=== PATIENT | female | born 1935 | race Caucasian/White ===

== ENCOUNTER → 2018-10-14 06:06 | Outpatient (CLI) | payer MEDICARE, OTHER, SELFPAY ==
--- NOTE | 2018-10-14 06:11 | ECHOD_ITS ---
Reason For Study: Abn.EKG Procedure This was a 2D Doppler, Color Flow transthoracic echocardiogram. The study was technically difficult. Exam performed in department. Left Ventricle Normal LV size. Left ventricular systolic function is normal. The estimated ejection fraction is 65 %. Diastolic function is indeterminate. No regional wall motion abnormalities noted. Right Ventricle Normal RV size. Normal systolic function. Atria Normal left atrium. Normal right atrium. No doppler evidence for ASD. Mitral Valve There is no mitral annular calcification. Normal mitral valve. Trivial mitral valve insufficiency. Tricuspid Valve Normal tricuspid valve. Trivial tricuspid valve insufficiency. Right ventricular systolic pressure estimated to be 26 mmHg. Aortic Valve Trisinus/trileaflet aortic valve. Moderate focal aortic valve calcification. Mild aortic stenosis. Pulmonic Valve The pulmonic valve is not well visualized. Great Vessels Normal sized aortic root. Pericardium/Pleural No pericardial effusion. MMode/2D Measurements & Calculations LVIDd: 4.0 cm IVSd: 1.2 cm LVOT diam: 2.0 cm LVIDs: 2.3 cm LVPWd: 0.91 cm LVOT area: 3.2 cm2 FS: 41.3 % Ao root diam: 3.7 cm LAV(MOD-bp): 47.3 ml LA A4 area: 14.4 cm2 LAV(MOD-bp) Indexed: 27.1 ml/m2 LAV(MOD-sp2): 53.4 ml LAV(MOD-sp4): 36.3 ml LA dimension(2D): 3.9 cm RA A4 area: 10.0 cm2 Doppler Measurements & Calculations MV E max alexander: 89.9 cm/sec Lat Peak E' Alexander: 7.0 cm/sec Med Peak E' Alexander: 4.7 cm/sec MV A max alexander: 161.4 cm/sec E/E' lat: 12.8 E/E' med: 19.0 MV E/A: 0.56 MV V2 max: 192.4 cm/sec MV P1/2t max alexander: 123.0 cm/sec Ao V2 max: 220.6 cm/sec MV max P.8 mmHg MV P1/2t: 47.8 msec Ao max P.5 mmHg MV V2 mean: 116.9 cm/sec MV dec slope: 753.1 cm/sec2 Ao V2 mean: 146.6 cm/sec MV mean P.2 mmHg MVA(P1/2t): 4.6 cm2 Ao mean P.7 mmHg MV V2 VTI: 31.6 cm Ao V2 VTI: 39.9 cm MVA(VTI): 2.5 cm2 BRADEN(I,D): 2.0 cm2 BRADEN(V,D): 1.8 cm2 LV V1 max: 123.3 cm/sec SV(LVOT): 79.1 ml PA V2 max: 97.2 cm/sec LV V1 max P.1 mmHg LV V1 mean P.3 mmHg LV V1 mean: 85.7 cm/sec LV V1 VTI: 24.4 cm TR max alexander: 241.6 cm/sec TR max P.4 mmHg Interpretation Summary The study was technically difficult. Left ventricular systolic function is normal. The estimated ejection fraction is 65 %. Trivial mitral valve insufficiency. Trivial tricuspid valve insufficiency. Mild aortic stenosis. Right ventricular systolic pressure estimated to be 26 mmHg. Diastolic function is indeterminate. Ordering Physician: Alice Dave Referring Physician: Alice Dave Performed By: Rubina Young RDCS
--- NOTE | 2018-10-14 10:05 | STRESSREP ---
Stress Test Report Date: 10-14-2018 Procedure: Pharmacologic stress nuclear imaging study Indications: Aortic valve disorder; preoperative cardiovascular evaluation Consent: Per the patient Procedure: The patient underwent pharmacologic (Regadenoson) evaluation with a peak heart rate of 112 beats per minute (81 predicted maximal heart rate) and a peak blood pressure of 130/80 mmHg. The baseline ECG demonstrated Normal sinus rhythm . The peak pharmacologic ECG demonstrated no obvious ECG changes . There was an isolated PVC during infusion . There was no complaint of chest discomfort during pharmacologic infusion or recovery. The examination was discontinued secondary to completion of protocol. Impression: 1. Pharmacologic (Regadenoson) evaluation 2. Peak pharmacologic ECG with no obvious ECG changes . 3. There was an isolated PVC during infusion . 4. Nuclear images pending Myocardial perfusion imaging study: Technique: The patient was injected with 11.5 millicuries of technetium 99m Cardiolite and subsequently rest SPECT Cardiolite nuclear imaging was obtained in the horizontal long, vertical long, and short axis views. The patient underwent pharmacologic (Regadenoson) evaluation with a peak heart rate of 112 beats per minute (81 % percent predicted maximal heart rate) and a peak blood pressure of 130/80 mmHg. The patient was injected with 34.2 millicuries of technetium 99m Cardiolite and subsequently stress SPECT Cardiolite nuclear imaging was obtained in the horizontal long, vertical long, and short axis views. A gated Cardiolite study at peak stress was obtained. Interpretation: Rest and stress SPECT Cardiolite nuclear imaging status post realignment, normalization, and attenuation correction demonstrate small area diminished tracer uptake near the apical segments without significant change between rest and stress. There is end systolic thickening and brightening. The gated Cardiolite study demonstrates myocardial thickening and inward wall motion. The reported LVEF is 82 %. Impression: 1. Rest and stress SPECT Cardiolite nuclear imaging demonstrates a small area of diminished tracer uptake near the apical segments without significant change between rest and stress appearing compatible with physiologic apical thinning with no myocardial perfusion changes considered diagnostic for associated stress induced myocardial ischemia. 2. The gated Cardiolite study reports an LVEF of 82 %. This note was generated with [employer] software. It may contain incorrect words, spelling, and punctuation that were not noted in checking the note before signing.
--- NOTE | 2018-10-14 10:09 | STRESSREP_ITS ---
Stress Test Report Date: 10-14-2018 Procedure: Pharmacologic stress nuclear imaging study Indications: Aortic valve disorder; preoperative cardiovascular evaluation Consent: Per the patient Procedure: The patient underwent pharmacologic (Regadenoson) evaluation with a peak heart rate of 112 beats per minute (81 predicted maximal heart rate) and a peak bl ood pressure of 130/80 mmHg. The baseline ECG demonstrated Normal sinus rhythm . The peak pharmacologic ECG demonstrated no obvious ECG changes . There was an isolated PVC during infusion . There was no complaint of chest discomfort during pharmacologic infusion or recovery. The examination was discontinued secondary to completion of protocol. Impression: 1. Pharmacologic (Regadenoson) evaluation 2. Peak pharmacologic ECG with no obvious ECG changes . 3. There was an isolated PVC during infusion . 4. Nuclear images pending Myocardial perfusion imaging study: Technique: The patient was injected with 11.5 millicuries of technetium 99m Cardiolite and subsequently rest SPECT Cardiolite nuclear imaging was obtained in the horizontal long, vertical long, and short axis views. The patient underwent pharmacologic (Regadenoson) evaluation with a peak heart rate of 112 beats per minute (81 % percent predicted maximal heart rate) and a peak blood pressure of 130/80 mmHg. The patient was injected with 34.2 millicuries of technetium 99m Cardiolite and subsequently stress SPECT Cardiolite nuclear imaging was obtained in the horizontal long, vertical long, and short axis views. A gated Cardiolite study at peak stress was obtained. Interpretation: Rest and stress SPECT Cardiolite nuclear imaging status post realignment, normalization, and attenuation correction demonstrate small area diminished tracer uptake near the apical segments without significant change between rest and stress. There is end systolic thickening and brightening. The gated Cardiolite study demonstrates myocardial thickening and inward wall motion. The reported LVEF is 82 %. Impression: 1. Rest and stress SPECT Cardiolite nuclear imaging demonstrates a small area of diminished tracer uptake near the apical segments without significant change between rest and stress appearing compatible with physiologic apical thinning with no myocardial perfusion changes considered diagnostic for associated stress induced myocardial ischemia. 2. The gated Cardiolite study reports an LVEF of 82 %. This note was generated with [employer] software. It may contain incorrect words, spelling, and punctuation that were not noted in checking the note before signing.
== END ==
PROVIDERS: Family Provider Internal Medicine; PCP Internal Medicine; Referring Provider Internal Medicine; Visit Provider Internal Medicine
DX: R94.31 Abnormal electrocardiogram [ECG] [EKG] (principal); I35.0 Nonrheumatic aortic (valve) stenosis; Z01.818 Encounter for other preprocedural examination
CPT/HCPCS: 78452; 93017; 93306; A9500; A4216; J2785

== ENCOUNTER → 2018-11-18 07:36 | Outpatient (CLI) | payer MEDICARE, OTHER, SELFPAY ==
[2018-11-18 10:07] LABS: Cholesterol 183 mg/dL (200); Hemoglobin A1c 8.2 % (4.2-6.3); High Density Lipoprotein 25 mg/dL; Triglycerides 662 mg/dL
== END ==
PROVIDERS: Family Provider Internal Medicine; PCP Internal Medicine; Referring Provider Internal Medicine; Visit Provider Internal Medicine
DX: E11.9 Type 2 diabetes mellitus without complications (principal); E78.5 Hyperlipidemia, unspecified; H01.003 Unspecified blepharitis right eye, unspecified eyelid
CPT/HCPCS: 36415; 80061; 83036

== ENCOUNTER → 2019-03-03 05:00 | Outpatient (REF) | payer MEDICARE, OTHER, SELFPAY ==
[2019-03-03 09:01] LABS: Hemoglobin A1c 8.8 % (4.2-6.3)
[2019-03-03 09:05] LABS: ALB/GLOB Ratio 0.8 RATIO (0.9-2.4); AST(SGOT) 28 U/L (15-37); Alanine Aminotransfer ALT/SGPT 29 U/L (13-56); Albumin, Serum 3.1 g/dL (3.2-5.0); Alkaline Phosphatase 69 U/L (45-117); Anion Gap 9 (5-15); BUN 18 mg/dL (7-18); BUN/Creat Ratio 24.5 RATIO (10-20); Calcium,Total 8.8 mg/dL (8.5-10.1); Chloride 106 mmol/L (98-107); Cholesterol 167 mg/dL (200); Creatinine, Serum 0.73 mg/dL (0.55-1.02); EST Glomerular Filtration Rate 81 mL/min (>60); Est Glom Filt Rate - Afr Amer 97 mL/min (>60); Globulin 3.7 g/dL (2.2-4.2); Glucose 169 mg/dL (74-106); High Density Lipoprotein 27 mg/dL; Potassium 4.3 mmol/L (3.5-5.1); Protein, Total 6.8 g/dL (6.4-8.2); Sodium Level 140 mmol/L (136-145); Thyroid Stim Hormone (TSH) 1.93 uIU/mL (0.358-3.74); Triglycerides 549 mg/dL
[2019-03-03 12:27] LABS: Microalbumin,Random Urine 37.3 mg/L (NO RANGE EST.)
== END ==
LOC: OLS.DANBUR 05:00
DX: I10 Essential (primary) hypertension (principal); E11.9 Type 2 diabetes mellitus without complications; E55.9 Vitamin D deficiency, unspecified; E78.5 Hyperlipidemia, unspecified; G91.9 Hydrocephalus, unspecified
CPT/HCPCS: 36415; 80053; 80061; 82043; 83036; 84443

== ENCOUNTER → 2019-04-08 13:41 | Outpatient (CLI) | payer MEDICARE, OTHER, SELFPAY ==
[2019-04-08 15:15] LABS: Lactic Acid 2.9 mmol/L (0.4-2.0)
== END ==
PROVIDERS: Family Provider Internal Medicine; PCP Internal Medicine; Referring Provider Internal Medicine; Visit Provider Internal Medicine
DX: E11.9 Type 2 diabetes mellitus without complications (principal)
CPT/HCPCS: 36415; 83605

== ENCOUNTER → 2019-04-15 10:43 | Outpatient (CLI) | payer MEDICARE, OTHER, SELFPAY ==
[2019-04-15 11:29] LABS: Lactic Acid 2.5 mmol/L (0.4-2.0)
== END ==
PROVIDERS: Family Provider Internal Medicine; PCP Internal Medicine; Referring Provider Internal Medicine; Visit Provider Internal Medicine
DX: E11.9 Type 2 diabetes mellitus without complications (principal)
CPT/HCPCS: 36415; 83605

== ENCOUNTER → 2019-04-26 11:42 | Outpatient (CLI) | payer MEDICARE, OTHER, SELFPAY ==
[2019-04-26 12:52] LABS: Lactic Acid 3.4 mmol/L (0.4-2.0)
== END ==
PROVIDERS: Family Provider Internal Medicine; PCP Internal Medicine; Referring Provider Internal Medicine; Visit Provider Internal Medicine
DX: R79.89 Other specified abnormal findings of blood chemistry (principal); E11.9 Type 2 diabetes mellitus without complications
CPT/HCPCS: 36415; 83605

== ENCOUNTER → 2019-05-05 10:49 | Outpatient (CLI) | payer MEDICARE, OTHER, SELFPAY ==
[2019-05-05 11:35] LABS: Absolute Neutrophil Count 5.8 X10^3/uL (2.0-7.7); Basophil# 0.07 X10^3/uL; Basophil% 0.8 % (0-1); Eosinophil# 0.38 X10^3/uL; Eosinophils% 4.1 % (0-5); Hematocrit 39.5 % (37-47); Hemoglobin 13.4 g/dL (12.0-15.0); Lymphocyte % 27.2 % (19-41); Mean Corp Hgb Conc 33.9 g/dL (32-36); Mean Corpuscular Hgb 31.2 pg (27.0-32.0); Mean Corpuscular Volume 92.1 fL (81-99); Mean Platelet Vol. 9.9 fl (6.2-12.0); Monocyte# 0.38 X10^3/uL; Monocyte% 4.1 % (0-10); NRBC Flagged by Analyzer 0 % (0-5); Neutrophil # 5.82 X10^3/uL (2.7-7.7); Neutrophil % 63.5 % (47-70); Platelet Count 273 K/mm3 (150-450); RBC Distribution Width CV 13.6 % (11.6-14.6); RBC Distribution Width SD 46.1 fl (35.1-43.9); Red Blood Count 4.29 M/mm3 (4.2-5.4); White Blood Count 9.2 K/mm3 (4.4-11.0)
[2019-05-05 11:43] LABS: Lactic Acid 3.8 mmol/L (0.4-2.0)
[2019-05-05 11:59] LABS: ALB/GLOB Ratio 0.8 RATIO (0.9-2.4); AST(SGOT) 39 U/L (15-37); Alanine Aminotransfer ALT/SGPT 33 U/L (13-56); Albumin, Serum 3.2 g/dL (3.2-5.0); Alkaline Phosphatase 81 U/L (45-117); Anion Gap 7 (5-15); BUN 21 mg/dL (7-18); BUN/Creat Ratio 20.6 RATIO (10-20); Calcium,Total 9.1 mg/dL (8.5-10.1); Chloride 104 mmol/L (98-107); Creatinine, Serum 1.02 mg/dL (0.55-1.02); EST Glomerular Filtration Rate 55 mL/min (>60); Est Glom Filt Rate - Afr Amer 67 mL/min (>60); Globulin 4.1 g/dL (2.2-4.2); Glucose 269 mg/dL (74-106); Potassium 4.2 mmol/L (3.5-5.1); Protein, Total 7.3 g/dL (6.4-8.2); Sodium Level 137 mmol/L (136-145)
== END ==
PROVIDERS: Family Provider Internal Medicine; PCP Internal Medicine; Referring Provider Internal Medicine; Visit Provider Internal Medicine
DX: E11.9 Type 2 diabetes mellitus without complications (principal)
CPT/HCPCS: 36415; 80053; 83605; 85025

== ENCOUNTER 2019-05-28 18:24 | Emergency (ER) | payer MEDICARE, OTHER, SELFPAY ==
[2019-05-28 18:25] VITALS: BP 173/79; PULSE 98; RESP 16; TEMP 37.1; O2SAT 97; BMI 33.5
--- NOTE | 2019-05-28 18:30 | CT_ITS ---
STUDY: CT BRAIN WITHOUT CONTRAST REASON FOR EXAM: Female, 83 years old. Fall. Headache. Hydrocephalus with shunt. RADIATION DOSAGE (If Supplied By Facility): CTDIvol = ( 44.99 ) mGy, DLP = ( 846.73 ) mGycm TECHNIQUE: Transaxial CT imaging of the brain was performed without administration of intravenous contrast material. Individualized dose optimization techniques were used for this CT. COMPARISON: None. FINDINGS: There are calcifications noted in the rhonda. There is no acute bleed or infarct. There are mild chronic ischemic and atrophic changes. There is a right posterior approach [employer] shunt catheter noted with its tip in the right lateral ventricle. There is mild hydrocephalus. The visualized paranasal sinuses are clear. The mastoid air cells are well aerated. There is no skull fracture. CT/Brain/Head without Contrast IMPRESSION: No acute bleed or infarct. Mild chronic ischemic changes. [employer]GER shunt in place with mild hydrocephalus. Electronically Signed: Conner Vidal, at 19:10 EDT Tel , Service support ,
--- NOTE | 2019-05-28 18:32 | ED.DCSUM_ITS ---
History of Present Illness Chief Complaint: Head Injury Informant: Patient Onset: Today, Hours Mechanism/Context: Fall, Trip Quality of Pain: Dull, Aching, Throbbing Location: Global headache Current Severity: Severe Maximum Severity: Severe Worsened by: Nothing Relieved by: Nothing Associated Symptoms: Loss of consciousness. Negative for: Parasthesias, Weakness, Loss of function, Inability to ambulate, Amnesia Length of loss of consciousness: Transient Narrative: Patient is an elderly woman who tripped/lost her balance striking her head on the floor. She states she had loss of conscious. She complains of severe headache and nausea. She is on no anticoagulant or antiplatelet medicine. She denies trouble with her vision. She does report occulta hearing even she has her hearing aids in. She denies neck pain. Denies paresthesia, anesthesia buttocks. She denies cardiac rest Tory symptoms. Only GI symptom is nausea. Prior similar symptoms: No Recent Illness/Hospitalization: No Past Medical History - Allergies and Home Meds Allergies/Adverse Reactions: Allergies acetaminophen Allergy (Verified 05/28/19 18:37) Unknown hydrocodone Allergy (Verified 05/28/19 18:37) Unknown Primary Care Physician: Alice Dave [Primary Care Provider] - Prior records reviewed: Yes Surgical History: noncontributory Lives: Jail Smoking Status: Unknown if ever smoked Alcohol: None Drugs: None Review of Systems General: Denies: Chills, Fever, Sweats Eyes: Denies: Visual changes - bilaterally, Blurred Vision - bilaterally, Diplopia ENT: Denies: Bilateral ear pain, Rhinorrhea, Sore throat Cardiovascular: Denies: Chest pain, Palpitations Respiratory: Denies: Dyspnea, Cough, Dyspnea on exertion Gastrointestinal: Reports: Nausea. Denies: Abdominal pain, Vomiting, Diarrhea, Melena, Hematochezia Genitourinary: Denies: Dysuria, Hematuria, Frequency Musculoskeletal: Denies: Myalgias, Arthralgias, Neck pain, Back pain, Swelling, Extremity Pain, -, - Skin: Denies: Rash, Wounds Neurological: Reports: Headache. Denies: Weakness, Parasthesia, Numbness Endocrine: Denies: Polyuria, Polydipsia Hematologic: Denies: Easy bruising, Easy bleeding Physical Exam Vital Signs/Narrative: Vital Signs Temp Pulse Resp BP Pulse Ox 05/28/19 18:25 98.8 F 98 16 173/79 H 97 Inital Vital Signs reviewed: Yes General: Well nourished, Well developed Head: Normocephalic, Atraumatic, - - Pain to palpation over the occiput and over shunt site. Eyes: Perrl, EOMI. Negative for: Pale conjunctiva, Scleral icterus ENT: TM's clear, No hemotympanum or drainage, No trauma. Negative for: Hemotympanum, Otorrhea, Nasal trauma, Nasal septal hematoma Neck: Nontender, Full ROM. Negative for: Spinal Tenderness, Paraspinal Tenderness Cardiovascular: Regular rate, Regular rhythm, No murmurs, Normal S1, Normal S2 Respiratory: No distress, CTA bilaterally, Chest nontender Abdomen: Soft, Nontender, Nondistended, Normal bowel sounds Back: Nontender. Negative for: CVA Tenderness - Right, CVA Tenderness - Left, Spinal Tenderness Skin: Normal color, No rash. Negative for: Cyanosis, Diaphoresis, Jaundice Neurological: Alert, Oriented x3, Cranial nerves II-XII grossly intact, Normal Strength, Normal Sensation, Normal DTR - There is no clonus or Babinski sign Psychological: Normal affect - Glascow Coma Scale Eye Opening: Spontaneous Motor: Obeys Commands Verbal: Oriented Coma Scale Total: 15 Diagnostic/Tx/Re-eval Impressions Brain CT 05/28/19 18:30 IMPRESSION: No acute bleed or infarct. Mild chronic ischemic changes. [employer]IC[employer] shunt in place with mild hydrocephalus. Electronically Signed: Conner Vidal at 19:10 EDT Tel , Service support , Shuntogram 05/28/19 20:00 IMPRESSION: Patient may have ventriculo-atrial shunt. The visualized catheter appears to be intact. Electronically Signed: Pushpa Carpio MD at 20:36 EDT , Service support , 05/28/19 18:30 Brain/Head without Contrast [CT] Stat 05/28/19 20:00 Shuntogram/Prec Placed Shunt [RAD] Stat CT was reviewed by me and agree there is no acute findings. Shunt series reveals no disruption of the catheter. Patient was medicated with morphine for her head pain. - Medical Decision Making Since patient is elderly i.e. greater than 6 5 years of age with loss of conscious severe headache and nausea per the [place] CT head rule radiologic imaging is needed/indicated. CT of the head was obtained. She was made n.p.o. Need to evaluate for intracranial traumatic bleed versus concussion. ED Disposition - Plan for ED Patient: Disposition: Home or Assisted Living Diagnosis: Concussion with loss of consciousness Instructions: CONCUSSION, No Wake Up Referrals: Alice Dave [Primary Care Provider] - As Needed
[2019-05-28] MEDS: Ondansetron ODT 4 MG Tablet PO (19:36)
[2019-05-28] MEDS: Morphine 4 MG/ML Syringe IM (19:46)
--- NOTE | 2019-05-28 20:00 | RAD_ITS ---
STUDY: X-RAY VENTRICULOPERITONEAL SHUNT CATHETER EVALUATION REASON FOR EXAM: Female, 83 years old. Check shunt placement. TECHNIQUE: Single AP portable view of the chest. One view of the pelvis was obtained. AP radiograph of the abdomen is obtained. 1 views of the cervical spine were obtained. 1 views of the skull were obtained. COMPARISON: Prior comparison studies are not available for review at this time. FINDINGS: CHEST: The lungs are expanded. There is perihilar interstitial thickening present in both lungs. There is no demonstrated pleural abnormality. There is borderline cardiomegaly. Normal mediastinum and he. Normal visualized pulmonary arteries. There is atherosclerotic calcification of the aortic arch with tortuosity. There are diffuse degenerative changes of the visualized thoracic spine. Normal visualized ribs, clavicles, and shoulders. There is no demonstrated abnormality of the visualized soft tissue structures of the upper abdomen. ABDOMEN: Normal visualized lung bases. There is an unremarkable bowel gas pattern. Surgical clips are visible in the right upper quadrant. There is no obvious organomegaly, mass or dilated bowel. There are pelvic calcifications probably representing phleboliths. There are diffuse degenerative changes of the visualized lumbar spine. The bones appear osteopenic. PELVIS: There is a non-specific bowel gas pattern. Normal visualized soft tissue structures. Normal bilateral iliac wings, sacroiliac joints and visualized sacrum. Normal visualized bilateral superior pubic rami. Normal visualized right femoral head. Normal right acetabulum. Normal right hip joint. Normal visualized left femoral head. Normal left acetabulum. Normal left hip joint. SKULL: Ventriculostomy drain is visible and apparently within the right parietal cranium. The catheter is visible in the soft tissues of the right neck and chest. The catheter may actually enter the superior vena cava. The catheter is NOT visible within the abdomen or pelvis. There is demineralization of the calvarium. There is demineralization of the facial bones. Normal visualized paranasal sinuses. RAD/Shuntogram/Prec Placed Shunt IMPRESSION: Patient may have ventriculo-atrial shunt. The visualized catheter appears to be intact. Electronically Signed: Pushpa Carpio MD at 20:36 EDT , Service support ,
[2019-05-28 21:09] VITALS: BP 161/68; PULSE 97; RESP 16; O2SAT 97
[2019-05-28] MEDS: Ibuprofen 200 MG Tablet 400 MG PO (21:31)
--- NOTE | 2019-05-28 21:39 | ED.RN ---
ABEL CHANDLER AT [facility] CALLED WITH REPORT.
== END 2019-05-28 22:25 | disposition home or self-care (01) ==
PROVIDERS: Emergency Provider Emergency Medicine; Family Provider Internal Medicine; PCP Internal Medicine
DX: S06.0X9A Concussion with loss of consciousness of unspecified duration, initial encounter (principal); W01.0XXA Fall on same level from slipping, tripping and stumbling without subsequent striking against object, initial encounter; Y93.9 Activity, unspecified; Z98.2 Presence of cerebrospinal fluid drainage device
CPT/HCPCS: 70450; 75809; 96372; 99283; A4216

== ENCOUNTER → 2019-06-04 07:09 | Outpatient (CLI) | payer MEDICARE, OTHER, SELFPAY ==
[2019-05-28 18:25] VITALS: BMI 33.5
[2019-06-04 08:10] LABS: Cholesterol 169 mg/dL (200); High Density Lipoprotein 28 mg/dL; Triglycerides 500 mg/dL; Uric Acid 4.8 mg/dL (2.6-6.0)
[2019-06-04 08:38] LABS: Hemoglobin A1c 8.7 % (4.2-6.3)
[2019-06-04 08:44] LABS: Lactic Acid 2.2 mmol/L (0.4-2.0)
== END ==
PROVIDERS: Family Provider Internal Medicine; PCP Internal Medicine; Referring Provider Internal Medicine; Visit Provider Internal Medicine
DX: E11.9 Type 2 diabetes mellitus without complications (principal); E78.5 Hyperlipidemia, unspecified; E78.1 Pure hyperglyceridemia; H61.23 Impacted cerumen, bilateral; M10.9 Gout, unspecified; G91.2 (Idiopathic) normal pressure hydrocephalus; R00.0 Tachycardia, unspecified; R79.89 Other specified abnormal findings of blood chemistry
CPT/HCPCS: 36415; 80061; 83036; 83605; 84550

== ENCOUNTER 2019-07-19 01:40 | Emergency (ER) | payer MEDICARE, OTHER, SELFPAY ==
[2019-07-19 01:41] VITALS: BP 174/67; PULSE 90; RESP 14; TEMP 36.4; O2SAT 96; BMI 35.6
--- NOTE | 2019-07-19 01:47 | CT_ITS ---
STUDY: CT BRAIN WITHOUT CONTRAST REASON FOR EXAM: Female, 84 years old. Fell last week, hit head, nausea today. History of hydrocephalus and shunt RADIATION DOSAGE (If Supplied By Facility): CTDIvol = ( 44.99 ) mGy, DLP = ( 846.73 ) mGycm TECHNIQUE: Transaxial CT imaging of the brain was performed without administration of intravenous contrast material. Individualized dose optimization techniques were used for this CT. COMPARISON: CT brain noncontrast 05/28/2019 FINDINGS: Normal soft tissue structures. There is hyperostosis frontalis internus. Remote eliot hole access bilateral frontal calvarium. Right ventriculostomy the air right occipital horn access, catheter tip at the interventricular septum. Mild hydrocephalus. There are areas of decreased attenuation within the white matter tracts of the supratentorial brain, consistent with microvascular disease changes. Normal basal ganglia and thalami. Stable rhonda calcifications. Normal cerebellum. There is no intracranial hemorrhage. There are no findings of an acute ischemic infarction. Chronic stable left sphenoid inflammation. 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 The bilateral mastoid air cells and ossicles are unopacified. CT/Brain/Head without Contrast IMPRESSION: Chronic involutional changes of the brain. Stable hydrocephalus, rhodna calcification and postsurgical changes. There is no acute intracranial pathology. There is no significant interval change. Electronically Signed: Krystin Woodward MD at 2:50 EST , Service support ,
--- NOTE | 2019-07-19 01:47 | RAD_ITS ---
STUDY: X-RAY - PELVIS AND LEFT HIP REASON FOR EXAM: Female, 84 years old. Follow-up 11+ days ago, left hip pain TECHNIQUE: 3 views of the pelvis and hip. COMPARISON: None. FINDINGS: There are degenerative changes of the visualized lumbar spine. Normal visualized soft tissue structures. There is narrowing with cortical sclerosis and osteophyte formation of the sacroiliac joint consistent with degenerative osteoarthritic changes. Normal bilateral superior and inferior pubic rami. There are degenerative changes of the pubic symphysis with articular narrowing and sclerosis. Normal bilateral ischial tuberosities. Normal visualized femoral head. Normal acetabulum. There is moderate articular joint space narrowing of the hip. Bilateral perinephritic soft tissue calcification. There is minimal irregularity along the greater trochanter on the AP view pelvis which is mildly degraded by motion without adjacent soft tissue swelling, this is not visualized on the selective views and likely an artifact. RAD/HIP, UNI W/ Pelvis 2-3 Views IMPRESSION: There is no acute displaced fracture or dislocation. Degenerative changes Changes involving the greater trochanter of the left hip as outlined above likely an artifact. Electronically Signed: Krystin Woodward MD at 2:17 EST , Service support ,
--- NOTE | 2019-07-19 01:47 | CT_ITS ---
STUDY: CT LUMBAR SPINE WITHOUT CONTRAST REASON FOR EXAM: Female, 84 years old. Fell last week, back and hip pain RADIATION DOSAGE (If Supplied By Facility): CTDIvol = ( 32.97 ) mGy, DLP = ( 784.67 ) mGycm TECHNIQUE: The patient was scanned in a multi detector CT scanner. High resolution transaxial imaging was performed. Images were obtained from L1 to sacral. Sagittal and coronal images were reconstructed. Individualized dose optimization techniques were used for this CT. COMPARISON: None FINDINGS: Normal lumbar lordosis. There is a gentle dextroscoliosis of the upper lumbar spine. Generalized osteoporosis. Normal vertebrae of the lumbar spine. L1-3, L4-5: There is sclerosis of the endplate, loss of the disk height, nitrogen gas formation, posterior spurring/disc bulging indenting the anterior thecal sac with posterior fact indentation, arthropathy of the bilateral apophyseal joints and ligamentous hypertrophy. There is normal osseous spinal canal. There is left greater than right narrowing of the neuroforamina. L3-4: There is sclerosis of the endplate, loss of the disk height, nitrogen gas formation, posterior spurring /disc bulging indenting the anterior thecal sac with posterior fact indentation, arthropathy of the bilateral apophyseal joints and ligamentous hypertrophy. There is normal osseous spinal canal. There is right greater than left narrowing of the neuroforamina. L5-S1: There is sclerosis of the endplate, loss of the disk height, posterior disc osteophyte complex, arthropathy of the bilateral apophyseal joints and ligamentous hypertrophy. There is normal spinal canal. There is mild narrowing of the neuroforamina. The degenerative sclerosis of the abdominal aorta, nonobstructing right renal calculi, left kidney appears smaller compared to the right side. This however is incompletely imaged. Degenerative changes of the bilateral sacroiliac joints. CT/Spine Lumbar without Contrast IMPRESSION: Multilevel degenerative changes, as described above. Osteoporosis. Atherosclerosis. Nonobstructing right renal calculi, asymmetry in renal sizes, incompletely imaged possible involution on the left side. There is no acute displaced fracture or dislocation. Electronically Signed: Krystin Woodward MD at 3:46 EST , Service support ,
--- NOTE | 2019-07-19 01:50 | ED.VIS.GEN ---
History of Present Illness Chief Complaint: Lower Extremity Injury Informant: Patient Onset: Days Context: Gradual Onset Timing: Intermittent Current Severity: Moderate Maximum Severity: Moderate Narrative: The patient is an 84-year-old female who walks with a walker with history of hydrocephalus status post shunt placement presents to the emergency department with left hip pain. Patient states that about a week ago, she had a fall when she was ambulating. She landed on her left side. She struck her back and then struck her head. Since then, she has had some pain in her left hip but it worsened tonight. She states it hurts to ambulate. She describes a burning pain down her leg. She has had no problems with bowel or bladder. She does have vertigo and feels like this is acting up. She is now been nauseated. She said no vomiting. She has not taken anything for her pain. Prior similar symptoms: No Recent Illness/Hospitalization: No Past Medical History - Allergies and Home Meds Allergies/Adverse Reactions: Allergies acetaminophen Allergy (Verified 05/28/19 18:37) Unknown hydrocodone Allergy (Verified 05/28/19 18:37) Unknown Primary Care Physician: Alice Dave [Primary Care Provider] - Prior records reviewed: Yes Past Medical History: - - Aortic stenosis, ADVERTISING ACCOUNT REPRESENTATIVE shunt Surgical History: noncontributory Smoking Status: Unknown if ever smoked Review of Systems General: Denies: Chills, Fever, Sweats Eyes: Denies: Visual changes - bilaterally, Diplopia ENT: Denies: Rhinorrhea, Sore throat Cardiovascular: Denies: Chest pain, Palpitations Respiratory: Denies: Dyspnea, Cough, Dyspnea on exertion Gastrointestinal: Denies: Abdominal pain, Nausea, Vomiting, Diarrhea, Melena, Hematochezia Genitourinary: Denies: Dysuria, Hematuria, Frequency Musculoskeletal: Reports: Myalgias, Arthralgias. Denies: Back pain, Extremity Pain Skin: Denies: Rash, Wounds Neurological: Denies: Headache, Weakness, Numbness Physical Exam Vital Signs/Narrative: Vital Signs Temp Pulse Resp BP Pulse Ox 07/19/19 01:41 97.5 F L 90 14 174/67 H 96 Inital Vital Signs reviewed: Yes General: Well nourished, Well developed, No Acute Distress Head: Normocephalic, Atraumatic Eyes: Perrl, EOMI ENT: Moist mucous membranes, No rhinorrhea Neck: Supple, Nontender Cardiovascular: Regular rate, Regular rhythm, No murmurs Respiratory: No distress, CTA bilaterally, Chest nontender Abdomen: Soft, Nontender, Nondistended, Normal bowel sounds Back: Nontender, Normal Inspection Extremities: No edema, Tenderness - Tenderness over left hip with superficial abrasions. Normal pulses. Skin: Normal color, No rash Neurological: Alert, Oriented x3, Cranial nerves II-XII grossly intact, Normal Strength, Normal Sensation Psychological: Normal affect, Normal Mood Diagnostic/Tx/Re-eval Clinical Impression(s) from Imaging Studies Brain CT 07/19/19 01:47 IMPRESSION: Chronic involutional changes of the brain. Stable hydrocephalus, rhonda calcification and postsurgical changes. There is no acute intracranial pathology. There is no significant interval change. Electronically Signed: Krystin Woodward MD at 2:50 EST , Service support , Hip/Pelvis X-Ray 07/19/19 01:47 IMPRESSION: There is no acute displaced fracture or dislocation. Degenerative changes Changes involving the greater trochanter of the left hip as outlined above likely an artifact. Electronically Signed: Krystin Woodward MD at 2:17 EST , Service support , Lumbar Spine CT 07/19/19 01:47 IMPRESSION: Multilevel degenerative changes, as described above. Osteoporosis. Atherosclerosis. Nonobstructing right renal calculi, asymmetry in renal sizes, incompletely imaged possible involution on the left side. There is no acute displaced fracture or dislocation. Electronically Signed: Krystin Woodward MD at 3:46 EST , Service support , - Medical Decision Making The patient presents with hip pain after mechanical fall 1 week ago. There are components of her pain that do seem more radicular. She also struck her back and her head. She does have a history of shunt placement. CT head was obtained. There was no evidence of acute abnormality. It is unchanged from prior. X-rays of the left hip show no evidence of acute fracture. There was significant arthritic change. CT of the lumbar spine shows chronic changes and osteopenia, but no evidence of fracture. The patient was treated with Tylenol given multiple intolerances. She was also given Zofran and meclizine though she was complaining of vertiginous symptoms which is chronic for her since her shunt placement. The patient is feeling improved. At this point, I do feel that her symptoms are likely secondary to her advanced arthritis and contusion. She will be given a prescription for lidocaine patch. She will be discharged back to her facility. Impression 1. Vertigo 2. Left hip contusion ED Disposition - Plan for ED Patient: Instructions: Hip Contusion Prescriptions: Lidocaine/Transparent Dressing [Lidocaine 4% Kit] 1 ea TP DAILY #5 kit Prescription Printed Referrals: Alcie Dave [Primary Care Provider] -
[2019-07-19] MEDS: Ondansetron ODT 4 MG Tablet PO (02:32)
[2019-07-19] MEDS: Acetaminophen 500 MG Tablet 1000 MG PO (02:32)
[2019-07-19] MEDS: Meclizine HCl 25 MG Tablet PO (02:39)
--- NOTE | 2019-07-19 03:29 | ED.RN ---
called ct for delay of results, she will call and see what delay is.
[2019-07-19 03:53] VITALS: BP 150/77; RESP 16
== END 2019-07-19 04:00 | disposition home or self-care (01) ==
PROVIDERS: Emergency Provider Emergency Medicine; Family Provider Internal Medicine; PCP Internal Medicine
DX: R42 Dizziness and giddiness (principal); S70.02XA Contusion of left hip, initial encounter; W01.198A Fall on same level from slipping, tripping and stumbling with subsequent striking against other object, initial encounter; Y93.9 Activity, unspecified; Y92.89 Other specified places as the place of occurrence of the external cause; Y99.9 Unspecified external cause status; Z98.2 Presence of cerebrospinal fluid drainage device
CPT/HCPCS: 70450; 72131; 73502; 99283

== ENCOUNTER → 2019-08-29 07:30 | Outpatient (CLI) | payer MEDICARE, OTHER, SELFPAY ==
[2019-08-29 08:48] LABS: AST(SGOT) 24 U/L (15-37); Alanine Aminotransfer ALT/SGPT 29 U/L (13-56); Albumin, Serum 3.5 g/dL (3.2-5.0); Alkaline Phosphatase 48 U/L (45-117); Bilirubin, Direct 0.12 mg/dL (0.00-0.30); Cholesterol 197 mg/dL (200); High Density Lipoprotein 30 mg/dL; Protein, Total 7.5 g/dL (6.4-8.2); Triglycerides 391 mg/dL; Very Low Density Lipoprotein 78 mg/dL (5-40)
[2019-08-29 09:12] LABS: Hemoglobin A1c 9.9 % (4.2-6.3)
== END ==
PROVIDERS: Family Provider Internal Medicine; PCP Internal Medicine; Referring Provider Internal Medicine; Visit Provider Internal Medicine
DX: E11.9 Type 2 diabetes mellitus without complications (principal); E78.1 Pure hyperglyceridemia
CPT/HCPCS: 36415; 80061; 80076; 83036

== ENCOUNTER 2019-09-24 21:37 | Emergency (ER) | payer MEDICARE, OTHER, SELFPAY ==
[2019-09-24 21:38] VITALS: BP 141/83; PULSE 89; RESP 16; TEMP 36.8; O2SAT 94; BMI 34.9
--- NOTE | 2019-09-24 22:07 | RAD_ITS ---
STUDY: X-RAY - LUMBAR SPINE REASON FOR EXAM: Female, 84 years old. Pain after a fall TECHNIQUE: 3 view(s) of the lumbar spine were obtained. COMPARISON: None FINDINGS: Normal lumbar lordosis. There is no substantial scoliosis. There is a normal alignment of the vertebrae. There is diffuse demineralization with multi-level endplate spondylosis. There is multi-level degenerative disc disease with multi-level disc space narrowing. There is no demonstrated fracture. There is atherosclerotic calcification of the abdominal aorta without a demonstrated aneurysm. RAD/Lumbar Spine 2 or 3 Views IMPRESSION: Degenerative changes of the spine, as detailed above. Electronically Signed: Dixon Jang MD at 23:33 EST , Service support ,
--- NOTE | 2019-09-24 22:07 | RAD_ITS ---
STUDY: X-RAY - RIGHT SHOULDER REASON FOR EXAM: Female, 84 years old. PT HAD A FALL STRIKING RT SIDE ON ENDTABLE THURSDAY. SINCE THEN PAIN TO RT SHOULDER/SIDE/HIP TECHNIQUE: 4 view(s) of the shoulder. COMPARISON: None. FINDINGS: No fracture or dislocation. Calcification superior and lateral to the humeral head may indicate calcific tendinosis. There is calcification superior to the acromioclavicular joint which may reflect remote trauma. Soft tissues and bony structures are otherwise unremarkable. RAD/Shoulder min 2 Views IMPRESSION: 1. No acute findings. 2. Calcification adjacent to the humerus suspicious for calcific tendinosis. 3. Calcification superior to the AC joint may reflect remote trauma. Electronically Signed: Joi Rivas MD at 23:38 EST Tel , Service support ,
--- NOTE | 2019-09-24 22:07 | RAD_ITS ---
STUDY: X-RAY - PELVIS REASON FOR EXAM: Female, 84 years old. PT HAD A FALL STRIKING RT SIDE ON ENDTABLE THURSDAY. SINCE THEN PAIN TO RT SHOULDER/SIDE/HIP TECHNIQUE: One view of the pelvis was obtained. COMPARISON: None. FINDINGS: There is a non-specific bowel gas pattern. Normal visualized soft tissue structures. There is narrowing with cortical sclerosis and osteophyte formation of the sacroiliac joint consistent with degenerative osteoarthritic changes. Normal visualized bilateral superior and inferior pubic rami. There are degenerative changes of the pubic symphysis with articular narrowing and sclerosis. Normal ischial tuberosities. Normal visualized right femoral head. There is osteoarthritic spur formation of the right acetabular rim. There is mild articular joint space narrowing of the right hip. Normal visualized left femoral head. There is osteoarthritic spur formation of the left acetabular rim. There is mild articular joint space narrowing of the left hip. RAD/Pelvis 1 or 2 Views IMPRESSION: Multilevel degenerative disease as described. No acute fracture or subluxation. Electronically Signed: Daniella Miranda MD at 0:05 EST , Service support ,
--- NOTE | 2019-09-24 22:07 | RAD_ITS ---
STUDY: X-RAY CHEST REASON FOR EXAM: Female, 84 years old. PT HAD A FALL STRIKING RT SIDE ON ENDTABLE THURSDAY. SINCE THEN PAIN TO RT SHOULDER/SIDE/HIP TECHNIQUE: PA and lateral views of the chest. COMPARISON: None. FINDINGS: A right-sided BUS ANALYST shunt is noted. The lungs are clear and expanded. There is no demonstrated pleural abnormality. Normal size heart. Normal mediastinum and he. Normal visualized pulmonary arteries. There are calcified plaques of the thoracic aorta. There are diffuse degenerative changes of the visualized thoracic spine. Normal visualized ribs, clavicles, and shoulders. There is no demonstrated abnormality of the visualized soft tissue structures of the upper abdomen. RAD/Chest PA and Lateral IMPRESSION: Calcified plaques of the thoracic aorta. Degenerative changes of the thoracic spine. No acute cardiopulmonary disease process is seen. Electronically Signed: Angelo Farias MD at 23:35 EST , Service support ,
--- NOTE | 2019-09-24 22:08 | ED.DCSUM_ITS ---
History of Present Illness Chief Complaint: Fall Narrative: Patient was brought to the emergency room several days after a fall. She is unsure of exactly when she fell. She does not know if there was at the end of last week at beginning of this week. States that she got her walker caught on a end table fell striking the right side of her body on the end table. She denies hitting her head or having any change in her headaches. As the week is gone on she notes pain in her bilateral hips, low back, and right shoulder. She is on the assisted living side at the [facility]. She went out with her son today. She states they are rubbing some ointment on her back and she seems more sore than normal. She has been taking Aleve in the morning in the evening that she is prescribed for her headaches. But no other pain medications. She has not been evaluated for this. Past Medical History - Allergies and Home Meds Allergies/Adverse Reactions: Allergies acetaminophen Allergy (Verified 09/24/19 23:07) Unknown hydrocodone Allergy (Verified 09/24/19 23:07) Unknown Primary Care Physician: Alice Dave [Primary Care Provider] - Surgical History: noncontributory Smoking Status: Never smoker Review of Systems General: Reports: Malaise. Denies: Chills, Fever, Sweats Eyes: Denies: Visual changes - bilaterally, Diplopia ENT: Denies: Rhinorrhea, Sore throat Cardiovascular: Denies: Chest pain, Palpitations Respiratory: Denies: Dyspnea, Cough, Dyspnea on exertion Gastrointestinal: Denies: Abdominal pain, Nausea, Vomiting, Diarrhea, Melena, Hematochezia Genitourinary: Denies: Dysuria, Hematuria, Frequency Musculoskeletal: Reports: Back pain, Extremity Pain, - - See history of present illness Skin: Denies: Rash, Wounds Neurological: Denies: Headache, Weakness, Numbness Physical Exam Vital Signs/Narrative: Vital Signs Temp Pulse Resp BP Pulse Ox 09/24/19 21:38 98.2 F 89 16 141/83 H 94 Inital Vital Signs reviewed: Yes General: Well nourished, Well developed, Obese, No Acute Distress Head: Normocephalic, Atraumatic Eyes: Perrl, EOMI ENT: Moist mucous membranes, No rhinorrhea Neck: Supple, Nontender Cardiovascular: Regular rate, Regular rhythm, No murmurs Respiratory: No distress, CTA bilaterally, Chest nontender Abdomen: Soft, Nontender, Nondistended, Normal bowel sounds Back: Normal Inspection, - - Patient reports tenderness to palpation over the lower lumbar spine and paraspinal musculature. Tenderness to palpation over the bilateral hips and diffusely over the right shoulder. She is able to raise the right shoulder. No obvious deformities. Extremities: Nontender, No edema Skin: Normal color, No rash Neurological: Alert, Oriented x3, Cranial nerves II-XII grossly intact, Normal S trength, Normal Sensation Psychological: Normal affect, Normal Mood Diagnostic/Tx/Re-eval - Medical Decision Making The lumbar spine, right shoulder, and pelvis were obtained and were negative for acute injuries. Basic labs are negative. She received Tylenol. At this point patient be discharged home. As she is only taking 400 of ibuprofen twice a day we can add in Tylenol every 6 hours. Follow-up with primary care return if worsening or concerns. Family was at the bedside during my discussion with the patient did note understanding and agreement with plan ED Disposition - Plan for ED Patient: Disposition: Home or Assisted Living Diagnosis: Contusion of shoulder, Lumbar strain, Contusion, hip Instructions: FALL, Mechanical, Contusions (Bruises) Referrals: Alice Dave [Primary Care Provider] - 3-5 Days Additional Instructions: Tylenol 650 mg every 6 hours as needed for pain
[2019-09-24 22:29] LABS: Absolute Lymphocyte Count 2.52 X10^3/uL (0.83-4.51); Absolute Neutrophil Count 4.1 X10^3/uL (2.0-7.7); Basophil# 0.04 X10^3/uL; Basophil% 0.5 % (0-1); Eosinophil# 0.18 X10^3/uL; Eosinophils% 2.5 % (0-5); Hematocrit 35.8 % (37-47); Lymphocyte # 2.52 X10^3/ul (4.0); Lymphocyte % 34.5 % (19-41); Mean Corp Hgb Conc 33.5 g/dL (32-36); Mean Corpuscular Hgb 29.9 pg (27.0-32.0); Mean Corpuscular Volume 89.1 fL (81-99); Mean Platelet Vol. 9.8 fl (6.2-12.0); Monocyte# 0.42 X10^3/uL; Monocyte% 5.7 % (0-10); NRBC Flagged by Analyzer 0 % (0-5); Neutrophil # 4.12 X10^3/uL (2.7-7.7); Neutrophil % 56.4 % (47-70); Platelet Count 325 K/mm3 (150-450); RBC Distribution Width CV 13.3 % (11.6-14.6); RBC Distribution Width SD 43.3 fl (35.1-43.9); Red Blood Count 4.02 M/mm3 (4.2-5.4); White Blood Count 7.3 K/mm3 (4.4-11.0)
[2019-09-24 22:43] LABS: ALB/GLOB Ratio 0.8 RATIO (0.9-2.4); AST(SGOT) 17 U/L (15-37); Alanine Aminotransfer ALT/SGPT 25 U/L (13-56); Albumin, Serum 3.2 g/dL (3.2-5.0); Alkaline Phosphatase 54 U/L (45-117); Anion Gap 8 (5-15); BUN 37 mg/dL (7-18); Calcium,Total 9.1 mg/dL (8.5-10.1); Chloride 104 mmol/L (98-107); Creatinine, Serum 1.32 mg/dL (0.55-1.02); EST Glomerular Filtration Rate 41 mL/min (>60); Est Glom Filt Rate - Afr Amer 49 mL/min (>60); Globulin 3.8 g/dL (2.2-4.2); Glucose 353 mg/dL (74-106); Potassium 3.9 mmol/L (3.5-5.1); Sodium Level 139 mmol/L (136-145)
[2019-09-24] MEDS: Acetaminophen 500 MG Tablet 1000 MG PO (23:58)
[2019-09-25 00:04] VITALS: BP 159/72; PULSE 80; RESP 14; O2SAT 96
[2019-09-25 01:14] VITALS: BP 153/84; PULSE 86; RESP 15
[2019-09-25 01:16] LABS: Bacteria 0 SEEN /hpf (None Seen); Mucous, Urine 0 SEEN /hpf (<or=2+); Red Blood Cells-Urine 0 SEEN /hpf (0-5)
[2019-09-25 01:21] LABS: Color, Urine Yellow (Yellow); Glucose, Dipstick 1000 mg/dl (Normal); Ketone-Dipstick Negative (Negative); Leukocyte Esterase-Dipstick 500 /ul (Negative); Nitrite-Dipstick Negative (Negative); Occult Blood-Urine Negative /ul (Negative); Protein-Dipstick Negative (Negative); Urine Bilirubin Dipstick Negative (Negative); Urine Clarity Sl. Cloudy (Clear); Urine Urobilinogen Normal (Normal)
[2019-09-25 01:46] LABS: Squamous Epithelial Cells - UA 5-10 SEEN /hpf (5-10); White Blood Cells 25-50 SEEN /hpf (0-5)
== END 2019-09-25 01:18 | disposition home or self-care (01) ==
PROVIDERS: Emergency Provider Emergency Medicine; PCP Internal Medicine
DX: S40.011A Contusion of right shoulder, initial encounter (principal); S39.012A Strain of muscle, fascia and tendon of lower back, initial encounter; S70.02XA Contusion of left hip, initial encounter; S70.01XA Contusion of right hip, initial encounter; E66.9 Obesity, unspecified; W18.30XA Fall on same level, unspecified, initial encounter; Y93.01 Activity, walking, marching and hiking; Y92.099 Unspecified place in other non-institutional residence as the place of occurrence of the external cause; Y99.9 Unspecified external cause status
CPT/HCPCS: 71046; 72100; 72170; 73030; 80053; 81001; 85025; 99283; A4216

== ENCOUNTER → 2019-10-09 21:00 | Outpatient (REF) | payer MEDICARE, OTHER, SELFPAY ==
[2019-09-24 21:38] VITALS: BMI 34.9
[2019-10-10 09:46] LABS: Color, Urine Yellow (Yellow); Glucose, Dipstick 100 mg/dl (Normal); Ketone-Dipstick Negative (Negative); Leukocyte Esterase-Dipstick 500 /ul (Negative); Nitrite-Dipstick Positive (Negative); Occult Blood-Urine 150 /ul (Negative); Protein-Dipstick 30 mg/dl (Negative); Specific Gravity, Urine 1.015 (1.002-1.030); Urine Bilirubin Dipstick Negative (Negative); Urine Clarity Sl. Cloudy (Clear); Urine Urobilinogen Normal (Normal); Urine pH 6.5 (5.0 - 8.0)
== END ==
LOC: OLS.DANBUR 21:00
PROVIDERS: PCP Internal Medicine
DX: N39.0 Urinary tract infection, site not specified (principal)
CPT/HCPCS: 81002; 87086; 87088; 87186

== ENCOUNTER 2019-11-06 21:08 | Emergency (ER) | payer MEDICARE, OTHER, SELFPAY ==
[2019-11-06 21:09] VITALS: BP 143/92; PULSE 85; RESP 15; TEMP 36.7; O2SAT 97; BMI 35.6
--- NOTE | 2019-11-06 21:39 | CT_ITS ---
STUDY: CT BRAIN WITHOUT CONTRAST REASON FOR EXAM: Female, 84 years old. PT STATED FALL, HX OF SHUNT RADIATION DOSAGE (If Supplied By Facility): CTDIvol = ( 44.99 ) mGy, DLP = ( 812.98 ) mGycm TECHNIQUE: Transaxial CT imaging of the brain was performed without administration of intravenous contrast material. Individualized dose optimization techniques were used for this CT. COMPARISON: Previous study of 07/19/2019 FINDINGS: Normal soft tissue structures. There are old bilateral frontal eliot holes. There is a right parietal eliot hole with shunt with tip located in the region of the interventricular septum. There is mild dilatation of the lateral ventricles. There are areas of decreased attenuation within the white matter tracts of the supratentorial brain, consistent with microvascular disease changes. Normal basal ganglia and thalami. Brainstem calcifications are noted. Normal cerebellum. There is no intracranial hemorrhage. There are no findings of an acute ischemic infarction. There is opacification of a nondominant left sphenoid sinus. CT/Brain/Head without Contrast IMPRESSION: 1. Right parietal eliot hole with shunt, with tip located in the region of the interventricular septum. 2. Mild dilatation of the lateral ventricles. 3. Chronic involutional changes. 4. Brainstem calcifications are noted. 5. Findings are similar to the previous study. There is no evidence of intracranial hemorrhage or acute infarct. Electronically Signed: Angelo Farias MD at 22:42 EDT , Service support ,
[2019-11-06] MEDS: Acetaminophen 500 MG Tablet 1000 MG PO (22:05)
--- NOTE | 2019-11-06 22:21 | RAD_ITS ---
STUDY: X-RAY - PELVIS AND RIGHT HIP REASON FOR EXAM: Female, 84 years old. right hip pain after fall TECHNIQUE: 3 views of the pelvis and hip. COMPARISON: Previous pelvic study of September 24, 2019 FINDINGS: There is a non-specific bowel gas pattern. Normal visualized soft tissue structures. Normal bilateral iliac wings, sacroiliac joints and visualized sacrum. Normal bilateral superior and inferior pubic rami. Normal pubic symphysis. Normal bilateral ischial tuberosities. Normal visualized femoral head. Normal acetabulum. Normal hip joint. There are degenerative changes of the visualized lower lumbar spine. RAD/HIP, UNI W/ Pelvis 2-3 Views IMPRESSION: Normal x-ray examination of the pelvis and hip. Electronically Signed: Angelo Farias MD at 22:36 EDT , Service support ,
[2019-11-06 23:08] VITALS: BP 133/60; PULSE 76; RESP 15; O2SAT 97
--- NOTE | 2019-11-06 23:26 | ED.VIS.GEN ---
History of Present Illness Chief Complaint: Fall Informant: Patient Narrative: Patient went to sit down and fell striking the back of her head and her buttocks. She also notes some pain in the right hip. No loss of consciousness. She does have a intracranial shunt. She is from assisted living on [address]. She utilizes a walker. Past Medical History - Allergies and Home Meds Allergies/Adverse Reactions: Allergies acetaminophen Allergy (Verified 09/24/19 23:07) Unknown hydrocodone Allergy (Verified 11/06/19 21:14) Unknown Primary Care Physician: Alice Dave [Primary Care Provider] - Surgical History: noncontributory Smoking Status: Never smoker Review of Systems General: Denies: Chills, Fever, Sweats Eyes: Denies: Visual changes - bilaterally, Diplopia ENT: Denies: Rhinorrhea, Sore throat Cardiovascular: Denies: Chest pain, Palpitations Respiratory: Denies: Dyspnea, Cough, Dyspnea on exertion Gastrointestinal: Denies: Abdominal pain, Nausea, Vomiting, Diarrhea, Melena, Hematochezia Genitourinary: Denies: Dysuria, Hematuria, Frequency Musculoskeletal: Reports: Back pain. Denies: Extremity Pain Skin: Denies: Rash, Wounds Neurological: Reports: Headache. Denies: Weakness, Numbness Physical Exam Vital Signs/Narrative: Vital Signs Temp Pulse Resp BP Pulse Ox 11/06/19 23:08 76 15 133/60 H 97 11/06/19 21:09 98.1 F 85 15 143/92 H 97 Inital Vital Signs reviewed: Yes General: Well nourished, Well developed, Obese, No Acute Distress Head: Normocephalic, Atraumatic, - - Tender to palpation on the right occiput without hematoma formation Eyes: Perrl, EOMI ENT: Moist mucous membranes, No rhinorrhea Neck: Supple, Nontender Cardiovascular: Regular rate, Regular rhythm, No murmurs Respiratory: No distress, CTA bilaterally, Chest nontender Abdomen: Soft, Nontender, Nondistended, Normal bowel sounds Back: Normal Inspection, - - Patient has tenderness along the sacrum. Extremities: Tenderness - The right hip near the greater trochanter is tender to palpation. There is no obvious deformity. Logroll is negative. Unable to flex the hip although it is tender Skin: Normal color, No rash Neurological: Alert, Oriented x3, Cranial nerves II-XII grossly intact, Normal Strength, Normal Sensation Psychological: Normal affect, Normal Mood Diagnostic/Tx/Re-eval - Medical Decision Making CT the brain was negative. X-rays of the hip and pelvis were negative. She received Tylenol. She has Tylenol and Advil written at the assisted living center. However the Advil is 400 mg twice a day. We can increase this for better pain control. Return if worsening or concerns. All questions answered at the bedside in the presence of family and the patient ED Disposition - Plan for ED Patient: Disposition: Home or Assisted Living Diagnosis: Fall, Sacral contusion, Scalp contusion Instructions: FALL, Mechanical Referrals: Alice Dave [Primary Care Provider] - 3-5 Days
[2019-11-07 00:01] VITALS: BP 133/60; PULSE 76; RESP 15; O2SAT 97
== END 2019-11-07 00:07 | disposition home or self-care (01) ==
PROVIDERS: Emergency Provider Emergency Medicine; PCP Internal Medicine
DX: S00.03XA Contusion of scalp, initial encounter (principal); S30.0XXA Contusion of lower back and pelvis, initial encounter; E66.9 Obesity, unspecified; W07.XXXA Fall from chair, initial encounter; Y93.89 Activity, other specified; Y92.129 Unspecified place in nursing home as the place of occurrence of the external cause; Y99.8 Other external cause status
CPT/HCPCS: 70450; 73502; 99284

== ENCOUNTER → 2019-12-08 05:00 | Outpatient (REF) | payer MEDICARE, OTHER, SELFPAY ==
[2019-12-08 08:36] LABS: Absolute Lymphocyte Count 3.13 X10^3/uL (0.83-4.51); Absolute Neutrophil Count 4.5 X10^3/uL (2.0-7.7); Basophil# 0.06 X10^3/uL; Basophil% 0.7 % (0-1); Eosinophil# 0.31 X10^3/uL; Eosinophils% 3.7 % (0-5); Hematocrit 37.2 % (37-47); Hemoglobin 12.3 g/dL (12.0-15.0); Lymphocyte # 3.13 X10^3/ul (4.0); Lymphocyte % 37.4 % (19-41); Mean Corp Hgb Conc 33.1 g/dL (32-36); Mean Corpuscular Hgb 29.4 pg (27.0-32.0); Mean Corpuscular Volume 88.8 fL (81-99); Mean Platelet Vol. 9.8 fl (6.2-12.0); Monocyte# 0.34 X10^3/uL; Monocyte% 4.1 % (0-10); NRBC Flagged by Analyzer 0 % (0-5); Neutrophil % 53.9 % (47-70); Platelet Count 375 K/mm3 (150-450); RBC Distribution Width CV 13.8 % (11.6-14.6); Red Blood Count 4.19 M/mm3 (4.2-5.4); White Blood Count 8.4 K/mm3 (4.4-11.0)
[2019-12-08 08:42] LABS: Lactic Acid 1.4 mmol/L (0.4-1.9)
[2019-12-08 08:55] LABS: Color, Urine Yellow (Yellow); Glucose, Dipstick 250 mg/dl (Normal); Ketone-Dipstick Negative (Negative); Leukocyte Esterase-Dipstick 500 /ul (Negative); Nitrite-Dipstick Negative (Negative); Occult Blood-Urine Negative /ul (Negative); Protein-Dipstick 15 mg/dl (Negative); Urine Bilirubin Dipstick Negative (Negative); Urine Clarity Clear (Clear); Urine Urobilinogen Normal (Normal)
[2019-12-08 09:17] LABS: AST(SGOT) 20 U/L (15-37); Alanine Aminotransfer ALT/SGPT 23 U/L (13-56); Albumin, Serum 3.8 g/dL (3.2-5.0); Alkaline Phosphatase 44 U/L (45-117); Anion Gap 11 (5-15); BUN 36 mg/dL (7-18); BUN/Creat Ratio 29.5 RATIO (10-20); Chloride 105 mmol/L (98-107); Creatinine, Serum 1.22 mg/dL (0.55-1.02); EST Glomerular Filtration Rate 45 mL/min (>60); Est Glom Filt Rate - Afr Amer 54 mL/min (>60); Globulin 3.8 g/dL (2.2-4.2); Glucose 222 mg/dL (74-106); Potassium 4.4 mmol/L (3.5-5.1); Protein, Total 7.6 g/dL (6.4-8.2); Sodium Level 140 mmol/L (136-145)
[2019-12-08 09:26] LABS: Vitamin B12 569 pg/mL (211-911); Vitamin D,25 Hydroxy 50.6 ng/mL
== END ==
LOC: OLS.DANBUR 05:00
PROVIDERS: PCP Internal Medicine
DX: I10 Essential (primary) hypertension (principal); E78.5 Hyperlipidemia, unspecified; M10.00 Idiopathic gout, unspecified site; E55.9 Vitamin D deficiency, unspecified; E11.9 Type 2 diabetes mellitus without complications; Z79.899 Other long term (current) drug therapy
CPT/HCPCS: 36415; 80053; 81002; 82306; 82607; 83605; 84443; 84590; 85025; 87077; 87086; 87088; 87186

== ENCOUNTER → 2020-01-26 05:00 | Outpatient (REF) | payer MEDICARE, OTHER, SELFPAY ==
[2020-01-26 08:40] LABS: Hemoglobin A1c 8.9 % (3.8-5.6)
== END ==
LOC: OLS.DANBUR 05:00
PROVIDERS: PCP Internal Medicine
DX: E11.9 Type 2 diabetes mellitus without complications (principal)
CPT/HCPCS: 36415; 83036

== ENCOUNTER 2020-03-04 19:28 | Emergency (ER) | payer MEDICARE, OTHER, SELFPAY ==
[2020-03-04 19:29] VITALS: BP 162/80; PULSE 92; RESP 18; TEMP 36.8; O2SAT 97; BMI 34.5
--- NOTE | 2020-03-04 19:52 | CT_ITS ---
STUDY: CT BRAIN WITHOUT CONTRAST REASON FOR EXAM: Female, 84 years old. CHANGE IN MENTAL STATUS, SUICIDAL, H/O SHUNT RADIATION DOSAGE (If Supplied By Facility): CTDIvol = ( 44.99 ) mGy, DLP = ( 829.85 ) mGycm TECHNIQUE: Transaxial CT imaging of the brain was performed without administration of intravenous contrast material. Individualized dose optimization techniques were used for this CT. COMPARISON: November 06, 2019 FINDINGS: Normal soft tissue structures. Normal calvarium. Dilated ventricles. Normal extra-axial spaces for the patient''s age. Old right frontal subcortical white matter ischemic changes. Normal basal ganglia and thalami. Stable right-sided shunt catheter. Stable central calcifications in the brainstem. Normal cerebellum. There is no intracranial hemorrhage. There are no findings of an acute ischemic infarction. Normal visualized paranasal sinuses. CT/Brain/Head without Contrast IMPRESSION: Stable chronic changes of the brain. Electronically Signed: Bernabe Macdonald DO at 21:06 EDT Tel [phone], Service support ,
--- NOTE | 2020-03-04 19:52 | EKG12_ITS ---
Test Reason : MENTAL HEALTH Blood Pressure : / mmHG Vent. Rate : 086 BPM Atrial Rate : 086 BPM P-R Int : 228 ms QRS Dur : 072 ms QT Int : 326 ms P-R-T Axes : 028 -39 -01 degrees QTc Int : 390 ms Sinus rhythm with 1st degree A-V block Left axis deviation Possible Lateral infarct , age undetermined Inferior infarct , age undetermined Abnormal ECG Confirmed by VIVIANA URBAN, KAYLEIGH ([id number]), order editor LIDYA MERINO ([id number]) on 03/05/2020 1:20:36 PM Referred By: BK Confirmed By:KAYLEIGH MICHELLE MD
--- NOTE | 2020-03-04 19:57 | ED.RN ---
NO OLD EKGS IN MUSE
[2020-03-04] MEDS: Ziprasidone IM 20 MG/ML VIAL 10 MG IM (20:15)
[2020-03-04 20:23] LABS: Absolute Lymphocyte Count 2.29 X10^3/uL (0.83-4.51); Absolute Neutrophil Count 4.7 X10^3/uL (2.0-7.7); Basophil# 0.04 X10^3/uL; Basophil% 0.5 % (0-1); Eosinophil# 0.32 X10^3/uL; Eosinophils% 4.1 % (0-5); Hematocrit 35.4 % (37-47); Hemoglobin 11.7 g/dL (12.0-15.0); Lymphocyte # 2.29 X10^3/ul (4.0); Lymphocyte % 29.5 % (19-41); Mean Corp Hgb Conc 33.1 g/dL (32-36); Mean Corpuscular Hgb 30.3 pg (27.0-32.0); Mean Corpuscular Volume 91.7 fL (81-99); Mean Platelet Vol. 9.9 fl (6.2-12.0); Monocyte% 5.2 % (0-10); NRBC Flagged by Analyzer 0 % (0-5); Neutrophil # 4.69 X10^3/uL (2.7-7.7); Neutrophil % 60.4 % (47-70); Platelet Count 382 K/mm3 (150-450); RBC Distribution Width CV 14.6 % (11.6-14.6); RBC Distribution Width SD 49.1 fl (35.1-43.9); Red Blood Count 3.86 M/mm3 (4.2-5.4); White Blood Count 7.8 K/mm3 (4.4-11.0)
--- NOTE | 2020-03-04 20:23 | ED.RN ---
No sitter per Dr. Dorman. PT has scratches to her inner left wrist that are in different stages of healing. PT is yelling for daughter, telling nurses that they have lied to her, escalating agitation. Nurses have tried various redirection techniques to calm patient. Calming medication ordered and given as directed.
[2020-03-04 20:35] LABS: Anion Gap 8 (5-15); BUN 66 mg/dL (7-18); BUN/Creat Ratio 23.3 RATIO (10-20); Calcium,Total 9.2 mg/dL (8.5-10.1); Chloride 113 mmol/L (98-107); Creatinine, Serum 2.83 mg/dL (0.55-1.02); EST Glomerular Filtration Rate 17 mL/min (>60); Est Glom Filt Rate - Afr Amer 21 mL/min (>60); Estimated Creatinine Clearance 10.82 ml/min; Glucose 125 mg/dL (74-106); Potassium 4.2 mmol/L (3.5-5.1); Sodium Level 143 mmol/L (136-145); Thyroid Stim Hormone (TSH) 2.12 uIU/mL (0.358-3.74)
--- NOTE | 2020-03-04 20:47 | RAD_ITS ---
CLINICAL HISTORY: Female, 84 years old. Shuntogram PROCEDURE: AP views of the chest abdomen and pelvis and lateral view of the skull Findings: There is a shunt tube projecting over the right lateral aspect of the skull which appears to be projecting over the brain at the level of the frontal bone and into the brain through a eliot hole in the parietal bone. The tube extends inferiorly along the right lateral aspect of the neck projecting over the right anterior chest wall and appears to terminate within the right atrium.. The shunt tubing appears to be continuous. RAD/Shuntogram/Prec Placed Shunt IMPRESSION: Ventriculoatrial shunt which appears to terminate in the right atrium.. N.B. : The above information has been verbally conveyed by Arnaldo Narvaez MD to Juan Dorman MD, on 03/04/2020 21:20:14 (ET). Electronically Signed: Arnaldo Narvaez MD at 21:22 EDT , Service support ,
[2020-03-04 20:52] LABS: Alcohol, Blood (Medical)-Serum < 3.0 mg/dL
--- NOTE | 2020-03-04 21:18 | ED.DCSUM_ITS ---
- ER Visit Summary Date of Service: 03/04/20 Chief Complaint: Agitated History of Present Illness: The patient is a [address] Dave. Patient is a poor informant. Per family the patient has been quite unhappy at her [facility]. She was at [facility] and was insistent that she be transferred to [facility]. She got there February 21. Staff there says that she has been kicking and yelling. She is threatening to harm herself. She has been hitting herself in the head. Daughter reports that she actually wanted to go there because her sister is at [facility] as well. Unable to obtain anything useful from the patient. She is on review of systems she reports that she is about half nauseated. She is not vomited. She reports she had one episode of diarrhea today because they gave me too much apple juice. States that she has a headache that is 9 out of 10 severity. However, her daughter reports that she always has headaches and a has a history of a [facility] shunt. Physical Examination: Vitals: Stable. Afebrile. General: Well-nourished and well-developed. Head: Normocephalic atraumatic. Neck: Supple, no lymphadenopathy. No JVD. Nontender. Cardiovascular: Regular rate and rhythm. No murmurs. Respiratory: No respiratory distress. Clear to auscultation bilaterally. Abdominal: Soft, nontender, nondistended, normal bowel sounds. No guarding, rebound, or peritoneal signs. Back: Nontender. Extremities: Nontender, no edema. Skin: Normal color, no rash. Neurologic: Alert and agitated. Moves all extremities well. She is not compliant with the neurologic exam. Psych: Agitated. Test Results: EKG is sinus with first-degree AV block rate of 86. CBC shows an H&H 11.7 35.4. Chem-7 shows a chloride of 113, glucose 125, BUN of 66, creatinine 2.83. Baseline creatinine is 1.22?1.32 in 2019. Alcohol is negative. TSH is 2.12. Clinical Impression(s) from Imaging Studies Brain CT 03/04/20 19:52 IMPRESSION: Stable chronic changes of the brain. 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 N.B. : The above information has been verbally conveyed by Arnaldo Narvaez MD to Juan Dorman MD, on 03/04/2020 21:20:14 (ET). Electronically Signed: Arnaldo Narvaez MD at 21:22 EDT , Service support , Emergency Department Course and Treatment: Patient was striking out at staff here. She was given Geodon IM so that the lab work and imaging could be obtained. Treatment Plan: Had a prolonged discussion with the patient's daughter and son b oth of who agree that the patient would benefit from geriatric psychiatry. Unfortunately there are not beds available at [facility] or [facility]. Disposition: Pending, but the patient will require geriatric psychiatry. Impression: 1. Agitation. 2. Acute on chronic renal insufficiency. This note was generated with [employer] dictation software. It may contain incorrect words, spelling, and punctuation that were not noted in review of the chart prior to signing ED Disposition - Plan for ED Patient: Referrals: Alice Dave MD [Primary Care Provider] -
[2020-03-04 21:34] LABS: Amphetamine Urine VISTA NEGATIVE (<1000 ng/mL); Barbiturate Urine VISTA NEGATIVE (< 200 ng/mL); Benzodiazepine Urine VISTA NEGATIVE (< 200 ng/mL); Cocaine Urine VISTA NEGATIVE (< 300 ng/mL); Ecstacy Urine VISTA NEGATIVE (< 500 ng/mL); Methadone Urine VISTA NEGATIVE (< 300 ng/mL); PCP Urine VISTA NEGATIVE (< 25 ng/mL); THC Urine VISTA NEGATIVE (< 50 ng/mL); Vista UDS pH Range 6
--- NOTE | 2020-03-04 22:15 | ED.RN ---
CALLED [facility] PER REQUEST OF DR BOURGEOIS, SPOKE TO ROXANN AND FAXED THE REPORT TO THE DESTINATION REQUESTED
[2020-03-04 22:16] LABS: Probe Check PASS; Specimen Processing Control PASS
[2020-03-04 22:33] VITALS: BP 150/72; PULSE 95; RESP 19
[2020-03-04 22:43] LABS: Mucous, Urine 0 SEEN /hpf (<or=2+); Red Blood Cells-Urine 0 SEEN /hpf (0-5); Squamous Epithelial Cells - UA 0 SEEN /hpf (5-10)
[2020-03-04 22:46] LABS: Color, Urine Yellow (Yellow); Glucose, Dipstick Normal (Normal); Ketone-Dipstick Negative (Negative); Leukocyte Esterase-Dipstick 100 /ul (Negative); Nitrite-Dipstick Negative (Negative); Occult Blood-Urine 10 /ul (Negative); Protein-Dipstick 15 mg/dl (Negative); Urine Bilirubin Dipstick Negative (Negative); Urine Clarity Clear (Clear); Urine Urobilinogen Normal (Normal)
[2020-03-04 23:06] LABS: White Blood Cells 5-10 SEEN /hpf (0-5)
[2020-03-04 23:07] LABS: Bacteria RARE /hpf (None Seen)
[2020-03-05] VITALS (7 sets, daily range): BP systolic 117–177; BP diastolic 52–87; PULSE 70–95; RESP 14–18; O2SAT 97–100
--- NOTE | 2020-03-05 03:09 | ED.RN ---
PT REMOVED HER OWN IV.
[2020-03-05] MEDS: Ziprasidone IM 20 MG/ML VIAL 10 MG IM (04:28)
--- NOTE | 2020-03-05 05:48 | ED.RN ---
Restraints removed at 0530.
--- NOTE | 2020-03-05 07:43 | ED.RN ---
PT ATTEND CHANGED WELL LINENS. PT DENIES FURTHER NEEDS AT THIS TIME. OFFERED BREAKFAST TRAY, PT DENIES HUNGER. SIDE RAILS UP X2, CALL LIGHT IN REACH. CURTAIN REMAINS OPEN FOR DIRECT OBSERVATION.
--- NOTE | 2020-03-05 10:12 | ED.RN ---
PT CALLED OUT NEEDING TO USE BATHROOM. PT ASSISTED ONTO BEDPAN, ATTENDS CHANGED. PT AGAIN OFFERED A MEAL, PT STATES NOT HUNGRY, DOES NOT WISH TO EAT. PT GIVEN CALL LIGHT AND PLACED IN A POSITION OF COMFORT. BED RAILS UP X2.
--- NOTE | 2020-03-05 12:44 | NURSING ---
CALLED [facility], RANDA WILL CALL BACK.
[2020-03-05] MEDS: Ziprasidone IM 20 MG/ML VIAL IM (14:27)
--- NOTE | 2020-03-05 14:40 | ED.RN ---
pt now asleep after medication administration. Restraints discontinued at this time. pt repositioned for comfort. pt denies needs a this time. no signs of distress noted.
--- NOTE | 2020-03-05 14:47 | NURSING ---
CALLED [facility] FOR TRANSPORT. ETA IS 30 MIN
--- NOTE | 2020-03-05 15:47 | ED.RN ---
REPORT CALLED TO [facility] TO ABEL KARIMI.
== END 2020-03-05 15:06 ==
LOC: ED 20:00
PROVIDERS: Emergency Provider Emergency Medicine; PCP Internal Medicine
DX: R45.1 Restlessness and agitation (principal); N18.9 Chronic kidney disease, unspecified; N28.9 Disorder of kidney and ureter, unspecified; E11.9 Type 2 diabetes mellitus without complications; I10 Essential (primary) hypertension; Z98.2 Presence of cerebrospinal fluid drainage device; Z79.84 Long term (current) use of oral hypoglycemic drugs; Z79.899 Other long term (current) drug therapy
CPT/HCPCS: 70450; 75809; 80048; 80307; 80320; 81001; 84443; 85025; 87635; 93005; 96360; 96361; 96372; 99285; G2023; J7040; A4216; G0480; J2405; J3486; U0003